=== PATIENT | male | born 1960 | race Asian ===

== ENCOUNTER 2019-07-21 10:31 | Emergency (ER) | payer MEDICAID ==
[~2019-07-21] VITALS: Ht 162.6 cm; Wt 64.1 kg
[~2019-07-21 10:31] MED LIST: ALBU6.7H9 INH; NO HOME MEDS
[2019-07-21 11:25] LABS: BASOPHILS % (AUTO) 0.6 % (0-1); EOSINOPHILS # (AUTO) 0.1 X10'3 (0-0.9); EOSINOPHILS % (AUTO) 0.7 % (0-6); HEMATOCRIT 43.9 % (42.0-52.0); LYMPHOCYTES # (AUTO) 2.2 X10'3 (1.1-4.8); LYMPHOCYTES % (AUTO) 27.4 % (21-51); MEAN CORPUSCULAR HEMOGLOBIN 29.4 PG (27.0-31.0); MEAN CORPUSCULAR HGB CONC 34.1 g/dL (33.0-36.5); MEAN CORPUSCULAR VOLUME 86.3 FL (78-98); MEAN PLATELET VOLUME 9.3 FL (7.4-10.4); MONOCYTES # (AUTO) 0.7 X10'3 (0-0.9); MONOCYTES % (AUTO) 8.7 % (2-12); NEUTROPHILS % (AUTO) 62.6 % (42-75); PLATELET COUNT 206 X10'3 (140-440); RED BLOOD COUNT 5.09 X10'6 (4.70-6.10); RED CELL DISTRIBUTION WIDTH 13.4 % (11.5-14.5)
[2019-07-21 11:34] LABS: ALANINE AMINOTRANSFERASE 32 U/L (12-78); ALBUMIN 3.6 G/DL (3.4-5.0); ALBUMIN/GLOBULIN RATIO 0.8 (1.1-1.5); ALKALINE PHOSPHATASE 78 IU/L (46-116); ANION GAP 8 (8-16); ASPARTATE AMINO TRANSFERASE 17 U/L (10-37); BILIRUBIN,TOTAL 0.5 MG/DL (0.1-1.0); BLOOD UREA NITROGEN 13 MG/DL (7-18); BUN/CREATININE RATIO 16.5 (5.4-32.0); CALCIUM 8.6 MG/DL (8.5-10.1); CHLORIDE 103 MMOL/L (99-107); CREATININE 0.79 MG/DL (0.60-1.10); GLUCOSE 128 MG/DL (70-104); POTASSIUM 3.7 MMOL/L (3.5-5.1); SODIUM 141 MMOL/L (135-145); TOTAL CARBON DIOXIDE 29.7 MMOL/L (24-32); TOTAL PROTEIN 8.2 G/DL (6.4-8.2); eGFR > 90 ML/MIN
[2019-07-21 14:16] VITALS: BP 132/79
[2019-07-21] MEDS ORDERED: HYDR25SU32 RC (14:30)
== END 2019-07-21 14:50 | disposition home or self-care (01) ==
LOC: ER 10:32
DX: K64.4 Residual hemorrhoidal skin tags (principal); Z79.899 Other long term (current) drug therapy
CPT/HCPCS: 36415; 80053; 85025; 85610; 99283

== ENCOUNTER 2021-02-16 20:14 | Emergency (ER) | payer MEDICAID ==
[~2021-02-16] VITALS: Ht 162.6 cm; Wt 62.0 kg
[~2021-02-16 20:14] MED LIST changes: +HYDR25SU32 RC
[2021-02-16 21:32] LABS: CLARITY,URINE CLEAR (Clear); COLOR,URINE YELLOW (Yellow); GLUCOSE, URINE NEGATIVE (Neg); KETONES,URINE NEGATIVE (Neg); LEUKOCYTE ESTERASE ,URINE NEGATIVE (Neg); NITRITES, URINE NEGATIVE (Neg); OCCULT BLOOD,URINE SMALL (Neg); PH,URINE 5.5 (4.8-8.0); PROTEIN,URINE NEGATIVE (Neg); UROBILINOGEN,URINE 0.2 E.U/dL (0.2-1.0)
[2021-02-16 21:42] LABS: BACTERIA,URINE NONE SEEN /HPF (Neg); RBC,URINE 0-2 /HPF (0-2); SQUAMOUS EPITHELIAL CELL,UR NONE SEEN /LPF (FEW); UA COLLECTION TYPE CLN CATCH MIDSTREAM; WBC,URINE NONE SEEN /HPF (0-4)
[2021-02-16] MEDS ORDERED: ALBU8.5H8 IH (22:09)
[2021-02-16] MEDS ORDERED: MIRA50TA PO (22:09)
[2021-02-16 22:12] VITALS: BP 100/74
== END 2021-02-16 22:14 | disposition home or self-care (01) ==
LOC: ER 20:14
DX: R35.0 Frequency of micturition (principal); J45.909 Unspecified asthma, uncomplicated; Z79.899 Other long term (current) drug therapy
CPT/HCPCS: 81001; 99283

== ENCOUNTER 2022-09-25 21:56 | Emergency (ER) | payer MEDICAID ==
[~2022-09-25] VITALS: Ht 157.5 cm; Wt 63.6 kg
[~2022-09-25 21:56] MED LIST changes: +ALBU6.7H14 INH; -ALBU6.7H9 INH; +ALBU8.5H17 IH; +MIRA50TA PO
[2022-09-25] MEDS ORDERED: acetaminophen 325mg tablet PO ONE (22:30)
[2022-09-25] MEDS ORDERED: ALBU8HFA PO (23:31)
[2022-09-25] MEDS ORDERED: BENZ-38 PO (23:31)
[2022-09-25] MEDS ORDERED: PRED20TA PO (23:31)
[2022-09-25 23:53] VITALS: BP 138/87
[2022-09-26] MEDS ORDERED: NIRM1TAB PO (09:20)
== END 2022-09-25 23:54 | disposition home or self-care (01) ==
LOC: ER 21:57
DX: U07.1 COVID-19 (principal); J06.9 Acute upper respiratory infection, unspecified; J45.909 Unspecified asthma, uncomplicated; Z79.899 Other long term (current) drug therapy
CPT/HCPCS: 87502; 87503; 87635; 99283; C9803